=== PATIENT | female | born 1970 | race Caucasian/White ===

== ENCOUNTER 2020-06-24 20:50 | Emergency (ER) | payer BC ==
[2020-06-24] MEDS ORDERED: Sodium Chloride 0.9% 1,000 ML IV ONE (21:04)
[2020-06-24] MEDS ORDERED: Ketorolac 30 MG/ML SDV IVPUSH ONE (21:08)
[2020-06-24] MEDS ORDERED: Ondansetron 4 MG/2 ML SDV IVPUSH ONE (21:08)
[2020-06-24] MEDS ORDERED: Metoclopramide 10 MG/2 ML SDV IV ONE (21:08)
[2020-06-24] MEDS ORDERED: diphenhydrAMINE 50 MG/ML SDV IVPUSH ONE (21:08)
--- NOTE | 2020-06-24 21:25 | EDM.PDOC ---
ED HPI GENERAL MEDICAL PROBLEM - General Chief Complaint: Headache Stated Complaint: MIGRAINE Time Seen by Provider: 06/24/20 20:50 Source of Information: Reports: Patient History Limitations: Reports: No Limitations - History of Present Illness INITIAL COMMENTS - FREE TEXT/NARRATIVE: HISTORY AND PHYSICAL: History of present illness: Patient is a 49-year-old female who presents to the emergency room today with concern of migraine headache that started at 8 this morning. Patient states that she has a longstanding history of migraines and that this is typical of her usual migraine and states that it starts on the right side and radiates to the back. Patient does express photophobia and nausea but states that she has not vomited which is also typical of her migraine symptoms. Patient states that she took a dose of Maxalt early this morning and did not have improvement of her symptoms so took a dose of 600 mg of ibuprofen at 2 PM. Patient states she waited an additional 3 to 4 hours and did not have improvement of her migraine so took another dose of Maxalt approximately 1 hour prior to arrival to the ED. Patient states that she has not had any improvement of her migraine symptoms and continues to feel nauseous. Patient denies any head trauma or injury. Patient denies any change of her migraine symptoms per her usual migraine type symptoms. Patient denies fever, chills, chest pain, shortness of breath, or cough. Denies neck stiff ness, change in vision, syncope, or near syncope. Denies nausea, vomiting, abdominal pain, diarrhea, constipation, or dysuria. Has not noted any blood in urine or stool. Patient has been eating and drinking appropriately. Review of systems: As per history of present illness and below otherwise all systems reviewed and negative. Past medical history: As per history of present illness and as reviewed below otherwise noncontributory. Surgical history: As per history of present illness and as reviewed below otherwise noncontributory. Social history: See social history for further information Family history: As per history of present illness and as reviewed below otherwise noncontributory. Physical exam: General: Patient is alert, oriented, and in no acute distress. Patient sitting comfortably on exam table. Vitals stable and reviewed by me. HEENT: Atraumatic, normocephalic, pupils equal and reactive bilaterally, negative for conjunctival pallor or scleral icterus, mucous membranes moist, TMs normal bilaterally, throat clear, neck supple, nontender, trachea midline. No drooling or trismus noted. No meningeal signs. No hot potato voice noted. Lungs: Clear to auscultation, breath sounds equal bilaterally, chest nontender. Heart: S1S2, regular rate and rhythm without overt murmur Abdomen: Soft, nondistended, nontender. Negative for masses or hepatosplenomegaly. Negative for costovertebral tenderness. Pelvis: Stable nontender. Genitourinary: Deferred. Rectal: Deferred. Skin: Intact, warm, dry. No lesions or rashes noted. Extremities: Atraumatic, negative for cords or calf pain. Neurovascular unremarkable. Neuro: Awake, alert, oriented. Cranial nerves II through XII unremarkable. Cerebellum unremarkable. Motor and sensory unremarkable throughout. Exam nonfocal. Notes: Upon reevaluation of patient, she expresses improvement of symptoms today in the ED. Signs and symptoms that would prompt return to the ED thoroughly discussed with patient. Discussed the importance for follow-up with her primary care provider. Voices understanding and is agreeable to plan of care. Denies any further questions or concerns at this time. Diagnostics: None Therapeutics: NS, Zofran, Benadryl, Toradol, Reglan Prescription: None Impression: Migraine headache, improved. Plan: 1. Continue to use your at home migraine medication as prescribed to you for symptomatic relief. 2. You can also alternate ibuprofen and Tylenol as directed for pain and discomfort. 3. Follow up with your primary care provider as discussed. Return to the ED as needed and as discussed. Definitive disposition and diagnosis as appropriate pending reevaluation and review of above. Headache Pain Score (Numeric/FACES): 10 - Related Data Allergies Allergy/AdvReac Type Severity Reaction Status Date / Time codeine Allergy Unknown Other Verified 06/24/20 21:04 Home Meds: Home Meds Fenofibrate Nanocrystallized [Fenofibrate] 145 mg PO DAILY 06/24/20 [History] Nortriptyline 20 mg PO ASDIRECTED PRN 06/24/20 [History] Pravastatin [Pravachol] 10 mg PO DAILY 06/24/20 [History] Rizatriptan Benzoate [Rizatriptan] 10 mg PO ASDIRECTED PRN 06/24/20 [History] Social & Family History - Recreational Drug Use Recreational Drug Use: No ED ROS GENERAL - Review of Systems Review Of Systems: Comprehensive ROS is negative, except as noted in HPI. ED EXAM, GENERAL - Physical Exam Exam: See Below (see dictation) Course - Vital Signs Last Recorded V/S: Last Vital Signs Temp 96.8 F L 06/24/20 21:29 Pulse 94 06/24/20 21:29 Resp 16 06/24/20 21:29 BP 114/78 06/24/20 21:29 Pulse Ox 99 06/24/20 21:29 - Orders/Labs/Meds Orders: Active Orders 24 hr Category Date Time Status Sodium Chloride 0.9% [Normal Saline] 1,000 ml Med 06/24/20 21:04 Ordered IV STAT Medication Orders Sodium Chloride (Normal Saline) 1,000 mls @ 999 mls/hr IV STAT ONE Stop: 06/24/20 22:04 Last Admin: 06/24/20 21:11 Dose: 999 mls/hr Documented by: AZUL Meds: Medications Generic Name Dose Route Start Last Admin Trade Name Freq PRN Reason Stop Dose Admin Sodium Chloride 1,000 mls @ 999 mls/hr 06/24/20 21:04 06/24/20 21:11 Normal Saline IV 06/24/20 22:04 999 mls/hr STAT ONE Administration Discontinued Medications Generic Name Dose Route Start Last Admin Trade Name Freq PRN Reason Stop Dose Admin Diphenhydramine HCl 50 mg 06/24/20 21:08 06/24/20 21:21 Benadryl IVPUSH 06/24/20 21:09 50 mg ONETIME ONE Administration Ketorolac Tromethamine 30 mg 06/24/20 21:08 06/24/20 21:24 Toradol IVPUSH 06/24/20 21:09 30 mg ONETIME ONE Administration Metoclopramide HCl 10 mg 06/24/20 21:08 06/24/20 21:21 Reglan IV 06/24/20 21:09 10 mg ONETIME ONE Administration Ondansetron HCl 4 mg 06/24/20 21:08 06/24/20 21:21 Zofran IVPUSH 06/24/20 21:09 4 mg ONETIME ONE Administration Departure - Departure Time of Disposition: 21:47 Disposition: Home, Self-Care 01 Clinical Impression: Migraine - Discharge Information Referrals: Vicente Stewart MD [Primary Care Provider] - Forms: ED Department Discharge Additional Instructions: The following information is given to patients seen in the emergency department who are being discharged to home. This information is to outline your options for follow-up care. We provide all patients seen in our emergency department with a follow-up referral. The need for follow-up, as well as the timing and circumstances, are variable de pending upon the specifics of your emergency department visit. If you don't have a primary care physician on staff, we will provide you with a referral. We always advise you to contact your personal physician following an emergency department visit to inform them of the circumstance of the visit and for follow-up with them and/or the need for any referrals to a consulting specialist. The emergency department will also refer you to a specialist when appropriate. This referral assures that you have the opportunity for follow-up care with a specialist. All of these measure are taken in an effort to provide you with optimal care, which includes your follow-up. Under all circumstances we always encourage you to contact your private physician who remains a resource for coordinating your care. When calling for follow-up care, please make the office aware that this follow-up is from your recent emergency room visit. If for any reason you are refused follow-up, please contact the [facility] Emergency Department at and asked to speak to the emergency department charge nurse. [facility] [address] [place] [address] [place] [address] 1. Continue to use your at home migraine medication as prescribed to you for symptomatic relief. 2. You can also alternate ibuprofen and Tylenol as directed for pain and discomfort. 3. Follow up with your primary care provider as discussed. Return to the ED as needed and as discussed. Sepsis Event Note (ED) - Evaluation Sepsis Screening Result: No Definite Risk - Focused Exam Vital Signs: Vital Signs Temp Pulse Resp BP Pulse Ox 06/24/20 21:29 96.8 F L 94 16 114/78 99 12/19/20 21:01 96.1 F L 98 18 124/80 98 - My Orders Last 24 Hours: My Active Orders 06/24/20 21:04 Sodium Chloride 0.9% [Normal Saline] 1,000 ml IV STAT - Assessment/Plan Last 24 Hours: My Active Orders 06/24/20 21:04 Sodium Chloride 0.9% [Normal Saline] 1,000 ml IV STAT
== END 2020-06-24 21:57 | disposition home or self-care (01) ==
LOC: MW.ED 20:50
DX: G43.909 Migraine, unspecified, not intractable, without status migrainosus (principal); Z88.5 Allergy status to narcotic agent; Z79.899 Other long term (current) drug therapy
CPT/HCPCS: 96374; 96375; 99283; J1200; J1885; J2405; J2765; J7030

== ENCOUNTER 2020-07-24 08:18 | Day surgery (SDC) | payer BC ==
[~2020-07-24 08:18] MED LIST: Lactated Ringers 1,000 ML IV SCH; Midazolam 1 MG/ML 2 ML SDV ONE; Ondansetron 4 MG/2 ML SDV ONE; Propofol 200 MG/20 ML SDV ONE; ceFAZolin 2 GM in Premix Bag 1 BAG IV SCH; fentaNYL 100 MCG/2 ML SDV ONE
[2020-07-24] MEDS ORDERED: Sodium Chloride 0.9% 20 ML ONE (08:35)
[2020-07-24] MEDS ORDERED: ceFAZolin 1 GM Vial ONE (08:35)
--- NOTE | 2020-07-24 08:50 | PCM.PREANE ---
Preanesthetic Assessment - Anesthesia/Transfusion/Family Hx Anesthesia History: Prior Anesthesia Without Reaction Family History of Anesthesia Reaction: No Transfusion History: No Prior Transfusion(s) Intubation History: Unknown - Review of Systems General: No Symptoms Pulmonary: No Symptoms Cardiovascular: No Symptoms Gastrointestinal: No Symptoms Neurological: No Symptoms Other: Reports: None - Physical Assessment Height: 5 ft 4 in Weight: 77.111 kg ASA Class: 2 Mental Status: Alert & Oriented x3 Airway Class: Mallampati = 2 Dentition: Reports: Normal Dentition Thyro-Mental Finger Breadths: 3 Mouth Opening Finger Breadths: 2 ROM/Head Extension: Limited/Partial Lungs: Clear to Auscultation, Normal Respiratory Effort Cardiovascular: Regular Rate, Regular Rhythm - Allergies Allergies/Adverse Reactions: Allergies Allergy/AdvReac Type Severity Reaction Status Date / Time codeine Allergy Unknown Cannot Verified 07/19/20 08:10 Remember - Blood Blood Available: No - Anesthesia Plan Pre-Op Medication Ordered: None - Acknowledgements Anesthesia Type Planned: General Anesthesia Pt an Appropriate Candidate for the Planned Anesthesia: Yes Alternatives and Risks of Anesthesia Discussed w Pt/Guardian: Yes Pt/Guardian Understands and Agrees with Anesthesia Plan: Yes PreAnesthesia Questionnaire HEENT History: Reports: Other (See Below) Other HEENT History: wears glasses/contacts Cardiovascular History: Reports: High Cholesterol Respiratory History: Reports: None Gastrointestinal History: Reports: None Genitourinary History: Reports: Renal Calculus PHOTOGRAPHER PORTRAIT History: Reports: None Musculoskeletal History: Reports: Fracture, RA (diagnosed '15) Other Musculoskeletal History: hx fx elbow Neurological History: Reports: Migraines Psychiatric History: Reports: Anxiety Endocrine/Metabolic History: Reports: None Hematologic History: Reports: None Immunologic History: Reports: None Oncologic (Cancer) History: Reports: None Dermatologic History: Reports: None - Past Surgical History Head Surgeries/Procedures: Reports: None HEENT Surgical History: Reports: None Cardiovascular Surgical History: Reports: None Respiratory Surgical History: Reports: None GI Surgical History: Reports: Cholecystectomy, Other (See Below) Other GI Surgeries/Procedures: hx paraesophageal hernia repair Female Surgical History: Reports: Kidney stone extraction, Tubal Ligation Endocrine Surgical History: Reports: None Neurological Surgical History: Reports: None Musculoskeletal Surgical History: Reports: ORIF (rt. elbow fx.), Other (See Below) Other Musculoskeletal Surgeries/Procedures:: hx surgery to left foot x2, left elbow x2 Oncologic Surgical History: Reports: None Dermatological Surgical History: Reports: None - SUBSTANCE USE Tobacco Use Status *Q: Current Every Day Tobacco User (5-6 cigarettes per day) Tobacco Use Within Last Twelve Months: Cigarettes - HOME MEDS Home Medications: Home Meds Fenofibrate Nanocrystallized [Fenofibrate] 145 mg PO DAILY 06/24/20 [History] Nortriptyline 20 mg PO BEDTIME 06/24/20 [History] Pravastatin [Pravachol] 10 mg PO BEDTIME 06/24/20 [History] Rizatriptan Benzoate [Rizatriptan] 10 mg PO ASDIRECTED PRN 06/24/20 [History] Sertraline HCl 100 mg PO BEDTIME 07/19/20 [History] Tofacitinib Citrate [Xeljanz Xr] 11 mg PO BEDTIME 07/19/20 [History] Zolpidem [Ambien] 10 mg PO BEDTIME 07/19/20 [History] traZODone HCl [Trazodone HCl] 50 mg PO BEDTIME 07/19/20 [History] - CURRENT (IN HOUSE) MEDS Current Meds: Current Medications Lactated Ringer's (Ringers, Lactated) 1,000 mls @ 100 mls/hr IV ASDIRECTED JAD Cefazolin Sodium/Dextrose 2 gm (/ Premix) 50 mls @ 100 mls/hr IV ONCALL JAD Discontinued Medications Cefazolin Sodium (Ancef) Confirm Administered Dose 2 gm .ROUTE .STK-MED ONE Stop: 07/24/20 08:36 Fentanyl (Sublimaze) Confirm Administered Dose 100 mcg .ROUTE .STK-MED ONE Stop: 07/24/20 06:53 Sodium Chloride (Normal Saline) Confirm Administered Dose 20 mls @ as directed .ROUTE .STK-MED ONE Stop: 07/24/20 08:36 Midazolam HCl (Versed 1 Mg/Ml) Confirm Administered Dose 2 mg .ROUTE .STK-MED ONE Stop: 07/24/20 06:53 Ondansetron HCl (Zofran) Confirm Administered Dose 4 mg .ROUTE .STK-MED ONE Stop: 07/24/20 06:53 Propofol (Diprivan 20 Ml) Confirm Administered Dose 200 mg .ROUTE .STK-MED ONE Stop: 07/24/20 06:53
[2020-07-24] MEDS ORDERED: Dexamethasone 4 MG/ML 5 ML MDV ONE (09:03)
[2020-07-24] MEDS ORDERED: Bupivacaine 0.5% 30 ML SDV ONE (09:03)
[2020-07-24] MEDS ORDERED: Lidocaine 2% 5 ML SDV ONE (09:03)
[2020-07-24] MEDS ORDERED: fentaNYL 100 MCG/2 ML SDV IVPUSH PRN (09:35)
[2020-07-24] MEDS ORDERED: Ketorolac 30 MG/ML SDV ONE (09:44)
--- NOTE | 2020-07-24 09:56 | PCM.OPNOTE ---
- General Post-Op/Procedure Note Date of Surgery/Procedure: 07/24/20 Operative Procedure(s): removal right olecranon mass Pre Op Diagnosis: right olecranon mass Post-Op Diagnosis: Same Anesthesia Technique: General LMA Primary Surgeon: Chuy Razo Rapid Extractor Operator: Kathy Colby Pathology: olecranon mass EBL in mLs: 10 Complications: None Condition: Good
[2020-07-24] MEDS ORDERED: Acetaminophen/oxyCODONE 325-5 MG Tab PO ONE (11:04)
--- NOTE | 2020-07-24 11:09 | OR ---
SURGEON: Chuy Razo DATE OF PROCEDURE: 07/24/2020 PREOPERATIVE DIAGNOSIS: Right shoulder olecranon mass. POSTOPERATIVE DIAGNOSIS: Right shoulder olecranon mass. PROCEDURE: Excision of right olecranon bursa and mass. PRIMARY SURGEON: Chuy Razo DO RESISTANCE MACHINE WELDER SETTER: LUIS Yun ROLE OF RESISTANCE MACHINE WELDER SETTER: Nurse practitioner, LUIS Yun, played an essential role in assisting in this case, helping to position the patient, retract structures as needed, as well as suturing and cutting sutures as indicated. Her presence improved patient's safety and decreased operative time. ANESTHESIA: General LMA. FLUID: Lactated Ringer's solution. ESTIMATED BLOOD LOSS: 10 mL. COMPLICATIONS: None. SPECIMEN: None. DISCHARGE DISPOSITION: Stable to PACU. HISTORY AND INDICATIONS FOR THE PROCEDURE: The patient was seen preoperatively in the clinic. She previously had a radial neck fracture which was treated. She also had this nodule taken off about 10 years ago. She was told that she had rheumatoid arthritis and thought it was rheumatoid nodule. Risks and goals of the procedure were explained to the patient. Informed consent was obtained. DETAILS OF PROCEDURE: The patient was seen preoperatively by myself and the Anesthesia staff in the preoperative holding area where the operative site was marked. She was brought to the operative suite by Anesthesia staff where general anesthesia was administered. All extremities were found to be well padded. A well-padded tourniquet was placed on the right arm. The right upper extremity was then prepped and draped in a sterile manner. Time-out was called identifying the correct patient, the correct procedure, the correct site, and that antibiotics were given within appropriate period of time. An incision was made so it was not directly over the olecranon process on the lateral side where the mass was. This was about a 4 cm long incision with a 10 blade. Bleeding was controlled with Bovie electrocautery. I then used an Allis to grab the skin edges and then used Metzenbaum and pickups to go around the bursa. I then used a 15 blade to cut the bursa out. I did this in several steps. The bursa was sent fresh for examination to pathology. After the bursa had been removed, I then used cautery to take care of any bleeders. I then copiously irrigated with saline and then closed with 3-0 Vicryl horizontal mattress sutures followed by Betadine-soaked Adaptic, fluffs, and an Murray wrap. The patient was allowed to awaken from general anesthesia and taken to the PACU in stable condition. [id number] / MODL /[id number]
--- NOTE | 2020-07-24 11:37 | PCM48HPAN ---
Post Anesthesia Note - EVALUATION WITHIN 48HRS OF ANESTHETIC Vital Signs in Normal Range: Yes Patient Participated in Evaluation: Yes Respiratory Function Stable: Yes Airway Patent: Yes Cardiovascular Function Stable: Yes Hydration Status Stable: Yes Pain Control Satisfactory: Yes Nausea and Vomiting Control Satisfactory: Yes Mental Status Recovered: Yes Vital Signs: Last Vital Signs Temp 36.2 C 07/24/20 08:54 Pulse 91 07/24/20 10:37 Resp 11 L 07/24/20 10:37 BP 108/69 07/24/20 10:37 Pulse Ox 93 L 07/24/20 10:37 - COMMENTS/OBSERVATIONS Free Text/Narrative:: No anesthesia problems
--- NOTE | 2020-07-24 11:37 | PCM.POSTAN ---
POST ANESTHESIA ASSESSMENT - MENTAL STATUS Mental Status: Alert, Oriented - VITAL SIGNS Vital Signs: Last Vital Signs Temp 36.2 C 07/24/20 08:54 Pulse 91 07/24/20 10:37 Resp 11 L 07/24/20 10:37 BP 108/69 07/24/20 10:37 Pulse Ox 93 L 07/24/20 10:37 - RESPIRATORY Respiratory Status: Respiratory Rate WNL, Airway Patent, O2 Saturation Stable - CARDIOVASCULAR CV Status: Pulse Rate WNL, Blood Pressure Stable - GASTROINTESTINAL GI Status: No Symptoms - PAIN Pain Score: 0 - POST OP HYDRATION Hydration Status: Adequate & Stable - OBSERVATIONS Free Text/Narrative:: No anesthesia problems
== END 2020-07-24 11:53 | disposition home or self-care (01) ==
LOC: MW.SDS 08:18
PROVIDERS: ATTEND Orthopaedic Surgery
DX: M70.21 Olecranon bursitis, right elbow (principal); M06.9 Rheumatoid arthritis, unspecified; F51.04 Psychophysiologic insomnia; G43.909 Migraine, unspecified, not intractable, without status migrainosus; F17.210 Nicotine dependence, cigarettes, uncomplicated; Z79.899 Other long term (current) drug therapy; Z88.5 Allergy status to narcotic agent; E78.00 Pure hypercholesterolemia, unspecified; Z90.49 Acquired absence of other specified parts of digestive tract
CPT/HCPCS: 24105; 88305; A9270; J0690; J1100; J1885; J2001; J2250; J2405; J2704; J3490; J7120; 01712; J3010